=== PATIENT | male | born 1980 | race African-American/Black ===

== ENCOUNTER 2017-02-03 04:23 | Emergency (ER) | payer SELFPAY ==
[~2017-02-03] VITALS: Ht 177.8 cm; Wt 70.3 kg
[2017-02-03 04:32] VITALS: BP 142/85
== END 2017-02-03 06:11 | disposition left against medical advice (07) ==
LOC: ER 04:25
DX: R45.851 Suicidal ideations (principal); Z53.21 Procedure and treatment not carried out due to patient leaving prior to being seen by health care provider

== ENCOUNTER 2017-02-05 03:11 | Emergency (ER) | payer MEDICAID ==
[~2017-02-05] VITALS: Ht 180.3 cm; Wt 74.8 kg
[2017-02-05 03:17] VITALS: BP 118/88
== END 2017-02-05 04:00 | disposition left against medical advice (07) ==
LOC: EDBD 03:11 → ER 03:15
DX: R45.851 Suicidal ideations (principal); Z53.21 Procedure and treatment not carried out due to patient leaving prior to being seen by health care provider
CPT/HCPCS: 93005